=== PATIENT | male | born 1990 | race Caucasian/White ===

== ENCOUNTER 2017-02-03 14:36 | Emergency (ER) | payer OTHER ==
[2017-02-03 14:37] VITALS: BMI 27.8
[2017-02-03 14:42] VITALS: BP 127/81; PULSE 79; RESP 20; TEMP 98; O2SAT 97
[2017-02-03] MEDS ORDERED: Tmp-Smz 800 mg-160 mg DS Tab PO STA (15:15)
--- NOTE | 2017-02-03 15:24 | C.PDOC ---
History Of Present Illness 27 y/o male presents to the ED with complaints of swelling and drainage from right 2nd digit. He states 1 week ago he got a splinter stuck in right 2nd digit, but he was able to remove it. Yesterday he developed swelling and pus at site - used a needle and lanced it himself, expressing pus. Pt denies fever, chills, sensory changes, new injuries. Time Seen by Provider: 02/03/17 14:47 Chief Complaint (Nursing): Finger,Hand,&Wrist History Per: Patient History/Exam Limitations: no limitations Onset/Duration Of Symptoms: Days Current Symptoms Are (Timing): Still Present Severity: Mild Past Medical History Reviewed: Historical Data, Nursing Documentation, Vital Signs Vital Signs: Last Vital Signs Temp 98 F 02/03/17 14:39 Pulse 79 02/03/17 14:39 Resp 20 02/03/17 14:39 BP 127/81 02/03/17 14:39 Pulse Ox 97 02/03/17 17:16 - Medical History PMH: No Chronic Diseases Family History: States: No Known Family Hx - Social History Hx Alcohol Use: No Hx Substance Use: No - Immunization History Hx Tetanus Toxoid Vaccination: No Hx Influenza Vaccination: No Hx Pneumococcal Vaccination: No Review Of Systems Except As Marked, All Systems Reviewed And Found Negative. Constitutional: Negative for: Fever, Chills Skin: Positive for: Other (wound to right 2nd digit) Neurological: Negative for: Weakness, Numbness Physical Exam - Physical Exam Appears: Well, Non-toxic, No Acute Distress Skin: Warm, Dry, Other (small puncture wound at palmar aspect right 2nd digit - very small amount of purulence under the skin, easily expressed, no paronychia ) Cardiovascular: Rhythm Regular Respiratory: Normal Breath Sounds, No Rales, No Rhonchi, No Wheezing Extremity: Normal ROM, Capillary Refill (<2 seconds all digits ) Extremity: Bilateral: Normal ROM Pulses: Left Radial: Normal, Right Radial: Normal Neurological/Psych: Oriented x3, Normal Motor, Normal Sensation ED Course And Treatment O2 Sat by Pulse Oximetry: 97 (room air) Pulse Ox Interpretation: Normal Progress Note: Wound culture obtained and sent. Patient given Bactrim and Keflex. Area covered with bacitracin and dressing. There is no evidence on physical exam of retained foreign body. Patient given Rxs for Bactrim, Kelfex and Naprosyn, and was instructed to follow up with PMD/clinic in 1-2 days. He understands he should return to Ed if symptoms worsen. Reevaluation Time: 15:30 Reassessment Condition: Improved Disposition Counseled Patient/Family Regarding: Studies Performed, Diagnosis, Need For Followup, Rx Given - Disposition Referrals: [facility] [Outside] Disposition: HOME/ ROUTINE Disposition Time: 15:30 Condition: STABLE Additional Instructions: FOLLOW UP WITH YOUR DOCTOR/CLINIC IN 1-2 DAYS USE MEDICATIONS DIRECTED SOAK FINGER IN WARM WATER/APPLY WARM COMPRESSES RETURN TO ER IF SYMPTOMS WORSEN Prescriptions: Cephalexin [Keflex] 500 mg PO BID #14 capsule Naproxen [Naprosyn Tab] 375 mg PO BID PRN #15 tab PRN Reason: pain Sulfamethoxazole/Trimethoprim [Bactrim DS 800 mg-160 mg] 1 tab PO BID #14 tab Instructions: Abscess (ED) Print Language: YORUBA - Clinical Impression Clinical Impression: Infected finger, Abscess of finger - Scribe Statement The provider has reviewed the documentation as recorded by the Jesse Garcia Provider Attestation: All medical record entries made by the Jesse were at my direction and personally dictated by me. I have reviewed the chart and agree that the record accurately reflects my personal performance of the history, physical exam, medical decision making, and the department course for this patient. I have also personally directed, reviewed, and agree with the discharge instructions and disposition.
[2017-02-03] MEDS ORDERED: Tmp-Smz 800 mg-160 mg DS Tab ONE (15:25)
[2017-02-03] MEDS ORDERED: Bacitracin 500 Units/gm Oint Foilpak UD TOP STA (15:26)
== END 2017-02-03 15:43 | disposition home or self-care (01) ==
LOC: C.ER 14:36
DX: L02.511 Cutaneous abscess of right hand (principal); B95.61 Methicillin susceptible Staphylococcus aureus infection as the cause of diseases classified elsewhere

== ENCOUNTER 2017-06-28 21:03 | Emergency (ER) | payer SELFPAY ==
[2017-06-28 21:03] VITALS: BMI 27.8
[2017-06-28 21:19] VITALS: BP 130/85; PULSE 96; TEMP 99; O2SAT 99
--- NOTE | 2017-06-28 21:26 | C.PDOC ---
History Of Present Illness 27 y/o male presents to ED with complaints of toothache for 3 days worse today. Patient states he has been taking Ibuprofen with relief but reports pain comes back. Patient denies fever, active bleeding, swelling or any other complaints at this time. Time Seen by Provider: 06/28/17 21:19 Chief Complaint (Nursing): Dental Pain History Per: Patient History/Exam Limitations: no limitations Onset/Duration Of Symptoms: Days Past Medical History Reviewed: Historical Data, Nursing Documentation, Vital Signs Vital Signs: Last Vital Signs Temp 99 F 06/28/17 21:16 Pulse 96 H 06/28/17 21:16 Resp 18 06/28/17 21:16 BP 130/85 06/28/17 21:16 Pulse Ox 99 06/28/17 21:37 - Medical History PMH: No Chronic Diseases Surgical History: No Surg Hx Family History: States: No Known Family Hx - Social History Hx Alcohol Use: No Hx Substance Use: No - Immunization History Hx Tetanus Toxoid Vaccination: No Hx Influenza Vaccination: Yes Hx Pneumococcal Vaccination: No Review Of Systems Constitutional: Negative for: Fever, Chills ENT: Positive for: Mouth Pain (dental) Respiratory: Negative for: Cough Gastrointestinal: Negative for: Nausea, Vomiting Skin: Negative for: Rash Physical Exam - Physical Exam Appears: Non-toxic, No Acute Distress Skin: Normal Color, Warm, Dry, No Rash Head: Atraumatic, Normacephalic Eye(s): bilateral: Normal Inspection, EOMI Ear(s): Bilateral: Normal Teeth: No Normal Dentition (fair), Caries (Left lower molar with large cavity and erosion of tooth), No Avulsed Gingiva: Normal Appearing, No Bleeding, No Abscess Throat: Normal, No Erythema Neck: Normal ROM Chest: Symmetrical Neurological/Psych: Oriented x3, Normal Speech ED Course And Treatment O2 Sat by Pulse Oximetry: 99 (RA) Pulse Ox Interpretation: Normal Medical Decision Making Medical Decision Making: [facility] reviewed with no findings Patient treated with Tylenol with codeine. Patient instructed to follow up with dentist. Disposition Counseled Patient/Family Regarding: Diagnosis, Need For Followup, Rx Given - Disposition [facility] [Outside] Guerda Alvarez MD [Primary Care Provider] - Disposition: HOME/ ROUTINE Disposition Time: 21:37 Condition: STABLE Additional Instructions: Follow up with the dentist or clinic in 2-5 days for further evaluation. Take medications as prescribed. Return to the emergency department at any time if symptoms persist or worsen. You may call [facility] for any assistance [phone]. Prescriptions: Acetaminophen with Codeine [Tylenol with Codeine No. 3 300 mg-30 mg] 1 tab PO Q8 PRN #14 tab PRN Reason: Pain, Moderate (4-7) Amoxicillin/Clavulanate [Augmentin 875 MG-125 MG] 1 tab PO BID #14 tab Instructions: Dental Caries (ED) Forms: [facility], [employer] ([place]) - POA Present On Arrival: None - Clinical Impression Clinical Impression: Dental caries - PA / PURCHASING ASSOCIATE / Resident Statement MD/DO has reviewed & agrees with the documentation as recorded. - Scribe Statement The provider has reviewed the documentation as recorded by the Scribfaisal Slade All medical record entries made by the Umeribfaisal were at my direction and personally dictated by me. I have reviewed the chart and agree that the record accurately reflects my personal performance of the history, physical exam, medical decision making, and the department course for this patient. I have also personally directed, reviewed, and agree with the discharge instructions and disposition.
[2017-06-28] MEDS ORDERED: Acetaminophen-Codeine 300/30 mg Tab PO STA (21:36)
[2017-06-28] MEDS ORDERED: Acetaminophen-Codeine 300/30 mg Tab PO ONE (21:43)
[2017-06-28 22:34] VITALS: RESP 20
== END 2017-06-28 22:00 | disposition home or self-care (01) ==
LOC: SUPCPDRO 21:03 → C.ER 21:03
DX: K02.9 Dental caries, unspecified (principal)